=== PATIENT | male | born 1945 | race Caucasian/White ===

== ENCOUNTER 2023-01-29 09:35 | Day surgery (SDC) | payer MEDICARE, BC ==
[2023-01-29] MEDS ORDERED: Proparacaine 0.5% Ophth Soln 15 ML Bottle EYELF ONE ×2 (09:45→10:33)
[2023-01-29] MEDS ORDERED: Cataract Ophth Solution EYELF ONE (09:45)
[2023-01-29] MEDS ORDERED: Povidone-Iodine 5% Sterile Ophth Soln 30 ML Bottle EYELF ONE ×2 (09:45→10:33)
[2023-01-29] MEDS ORDERED: Acetaminophen 325 MG Tab PO PRN (09:45)
[2023-01-29] MEDS ORDERED: Ondansetron 4 MG/2 ML SDV IVPUSH PRN (09:45)
[2023-01-29] MEDS ORDERED: Sodium Chloride 0.9% 10 ML Syringe FLUSH PRN (09:45)
[2023-01-29] MEDS ORDERED: Tropicamide 1% Ophth Soln 15 ML Bottle EYELF ONE (09:45)
[2023-01-29] MEDS ORDERED: Phenylephrine 10% Ophth Soln 5 ML Bot EYELF PRN (09:45)
[2023-01-29] MEDS ORDERED: Moxifloxacin 0.5% Ophth Soln 3 ML Bottle EYELF ONE (09:45)
[2023-01-29] MEDS ORDERED: Timolol Maleate 0.5% Ophth Soln 5 ML Bottle EYELF ONE (09:45)
[2023-01-29] MEDS ORDERED: Acetaminophen/Codeine 300-30 MG Tab PO PRN (09:45)
[2023-01-29] MEDS ORDERED: Lidocaine 1% 30 ML SDV ONE (10:40)
[2023-01-29] MEDS ORDERED: Balanced Salt Solution Ophth Irrig 500 ML Bottle IOCULAR ONE (10:43)
[2023-01-29] MEDS ORDERED: Dexamethasone 4 MG/ML SDV IOCULAR ONE (10:45)
[2023-01-29] MEDS ORDERED: Chondroitin Sulfate/Hyaluronate Sodium Ophth Inj 0.75 ML Syringe EYELF ONE (10:45)
[2023-01-29] MEDS ORDERED: Vancomycin 500 MG SDV EYELF ONE (10:45)
[2023-01-29] MEDS ORDERED: Dexamethasone/Neomycin/Polymyxin B Ophth Oint 3.5 GM Tube EYELF ONE (10:50)
[2023-01-29] MEDS ORDERED: Diclofenac Sodium 0.1% Ophth Soln 5 ML Bottle EYELF ONE (10:50)
[2023-01-29] MEDS ORDERED: Apraclonidine 0.5% Ophth Soln 5 ML Bot EYELF ONE (10:50)
== END 2023-01-29 11:30 | disposition home or self-care (01) ==
LOC: DL.SDS 09:35
PROVIDERS: ATTEND Ophthalmology
DX: H25.812 Combined forms of age-related cataract, left eye (principal); I10 Essential (primary) hypertension; E66.09 Other obesity due to excess calories; M19.90 Unspecified osteoarthritis, unspecified site; Z68.36 Body mass index [BMI] 36.0-36.9, adult; Z98.890 Other specified postprocedural states; Z79.899 Other long term (current) drug therapy
CPT/HCPCS: 00142; A9270-GY; J1100; J3370; J3490; V2632

== ENCOUNTER 2023-02-12 09:30 | Day surgery (SDC) | payer MEDICARE, BC ==
[2023-02-12] MEDS ORDERED: Moxifloxacin 0.5% Ophth Soln 3 ML Bottle EYERT ONE (09:45)
[2023-02-12] MEDS ORDERED: Proparacaine 0.5% Ophth Soln 15 ML Bottle EYERT ONE ×2 (09:45→10:49)
[2023-02-12] MEDS ORDERED: Sodium Chloride 0.9% 10 ML Syringe FLUSH PRN (09:45)
[2023-02-12] MEDS ORDERED: Ondansetron 4 MG/2 ML SDV IVPUSH PRN (09:45)
[2023-02-12] MEDS ORDERED: Tropicamide 1% Ophth Soln 15 ML Bottle EYERT ONE (09:45)
[2023-02-12] MEDS ORDERED: Povidone-Iodine 5% Sterile Ophth Soln 30 ML Bottle EYERT ONE ×2 (09:45→10:49)
[2023-02-12] MEDS ORDERED: Cataract Ophth Solution EYERT ONE (09:45)
[2023-02-12] MEDS ORDERED: Acetaminophen/Codeine 300-30 MG Tab PO PRN (09:45)
[2023-02-12] MEDS ORDERED: Timolol Maleate 0.5% Ophth Soln 5 ML Bottle EYERT ONE (09:45)
[2023-02-12] MEDS ORDERED: Acetaminophen 325 MG Tab PO PRN (09:45)
[2023-02-12] MEDS ORDERED: Phenylephrine 10% Ophth Soln 5 ML Bot EYERT PRN (09:45)
[2023-02-12] MEDS ORDERED: Apraclonidine 0.5% Ophth Soln 5 ML Bot EYERT ONE (10:49)
[2023-02-12] MEDS ORDERED: Lidocaine 1% 30 ML SDV ONE (10:50)
[2023-02-12] MEDS ORDERED: Diclofenac Sodium 0.1% Ophth Soln 5 ML Bottle EYERT ONE (10:50)
[2023-02-12] MEDS ORDERED: Dexamethasone/Neomycin/Polymyxin B Ophth Oint 3.5 GM Tube EYERT ONE (10:50)
[2023-02-12] MEDS ORDERED: Chondroitin Sulfate/Hyaluronate Sodium Ophth Inj 0.75 ML Syringe EYERT ONE (10:51)
[2023-02-12] MEDS ORDERED: Balanced Salt Solution Ophth Irrig 500 ML Bottle IOCULAR ONE (10:51)
[2023-02-12] MEDS ORDERED: Vancomycin 500 MG SDV EYERT ONE (10:51)
== END 2023-02-12 11:35 | disposition home or self-care (01) ==
LOC: DL.SDS 09:30
PROVIDERS: ATTEND Ophthalmology
DX: H25.811 Combined forms of age-related cataract, right eye (principal); I10 Essential (primary) hypertension; K21.9 Gastro-esophageal reflux disease without esophagitis; H91.90 Unspecified hearing loss, unspecified ear; M50.30 Other cervical disc degeneration, unspecified cervical region; E66.09 Other obesity due to excess calories; Z68.31 Body mass index [BMI] 31.0-31.9, adult; Z86.718 Personal history of other venous thrombosis and embolism; Z90.49 Acquired absence of other specified parts of digestive tract; Z90.09 Acquired absence of other part of head and neck
CPT/HCPCS: 66982; A9270; J3370; V2632; J3490